=== PATIENT | male | born 1955 | race African-American/Black ===

== ENCOUNTER 2016-09-09 09:23 | Emergency (ER) | payer MEDICAID ==
[~2016-09-09] VITALS: Ht 190.5 cm; Wt 99.0 kg
[2016-09-09] MEDS ORDERED: LIDOCAINE HCL 1% 20ML VIAL (Pyxis) INJ MC ONE (11:30)
[2016-09-09] MEDS ORDERED: BACITRACIN ZINC OINT UDPKT TOP ONE (11:30)
[2016-09-09 15:05] VITALS: BP 147/85
== END 2016-09-09 15:08 | disposition home or self-care (01) ==
LOC: ER 09:37
DX: S81.812A Laceration without foreign body, left lower leg, initial encounter (principal); W22.8XXA Striking against or struck by other objects, initial encounter; Y93.H2 Activity, gardening and landscaping; Y92.89 Other specified places as the place of occurrence of the external cause; R03.0 Elevated blood-pressure reading, without diagnosis of hypertension; F17.210 Nicotine dependence, cigarettes, uncomplicated
CPT/HCPCS: 12002; 73590; 99284; J3490; Z7610

== ENCOUNTER 2016-09-11 06:42 | Emergency (ER) | payer MEDICAID ==
[~2016-09-11] VITALS: Ht 193 cm; Wt 103.0 kg
[2016-09-11 07:56] VITALS: BP 122/80
== END 2016-09-11 07:57 | disposition home or self-care (01) ==
LOC: ER 07:44
DX: S81.812D Laceration without foreign body, left lower leg, subsequent encounter (principal); M19.90 Unspecified osteoarthritis, unspecified site; X58.XXXD Exposure to other specified factors, subsequent encounter; Y92.096 Garden or yard of other non-institutional residence as the place of occurrence of the external cause; Y99.0 Civilian activity done for income or pay
CPT/HCPCS: 99283; Z7610

== ENCOUNTER 2016-09-14 02:51 | Emergency (ER) | payer MEDICAID ==
[~2016-09-14] VITALS: Ht 193 cm; Wt 102.0 kg
[2016-09-14] MEDS ORDERED: TETANUS, DIPHTHERIA, PERTUSSIS VAC/PF 0.5ML (>7YR OLD) IM ONE (03:30)
[2016-09-14] MEDS ORDERED: BACITRACIN ZINC OINT UDPKT TOP ONE (03:30)
[2016-09-14] MEDS ORDERED: IBUPROFEN 600MG TABLET PO ONE (03:30)
[2016-09-14 05:23] VITALS: BP 124/72
== END 2016-09-14 05:26 | disposition home or self-care (01) ==
LOC: ER 02:51
DX: Z48.00 Encounter for change or removal of nonsurgical wound dressing (principal)
CPT/HCPCS: 90471; 90715; 99283

== ENCOUNTER 2016-09-21 10:34 | Emergency (ER) | payer MEDICAID ==
[~2016-09-21] VITALS: Ht 193 cm; Wt 100.0 kg
[2016-09-21 11:58] VITALS: BP 118/59
== END 2016-09-21 12:22 | disposition home or self-care (01) ==
LOC: ER 11:57
DX: Z48.02 Encounter for removal of sutures (principal); J45.909 Unspecified asthma, uncomplicated; F17.210 Nicotine dependence, cigarettes, uncomplicated; M19.90 Unspecified osteoarthritis, unspecified site
CPT/HCPCS: 99281; Z7610

== ENCOUNTER 2020-08-09 15:37 | Emergency (ER) | payer MEDICAID, OTHER ==
[~2020-08-09] VITALS: Ht 190.5 cm; Wt 97.0 kg
[2020-08-09 17:13] LABS: CHLORIDE 108 mEq/L (98-107)
[2020-08-09 17:16] LABS: BASOPHILS % 0.7 % (0.0-2.0); EOSINOPHILS % 3.9 % (0.0-5.0); HEMATOCRIT. 38.3 % (42.0-52.0); HEMOGLOBIN. 13.3 g/dL (14.0-18.0); LYMPHOCYTES % 37.5 % (20.0-50.0); MEAN CORPUSCULAR HEMOGLOBIN 32.2 pg (28.0-32.0); MEAN PLATELET VOLUME 7.7 fl (7.4-10.4); MONOCYTES % 6.1 % (2.0-8.0); NEUTROPHILS % 51.8 % (40.0-76.0); PLATELET 215 x1000/uL (130-400); RED BLOOD CELL COUNT 4.12 mill/uL (4.7-6.1); RED CELL DISTRIBUTION WIDTH 12.8 % (11.6-14.6)
[2020-08-09 17:17] LABS: ETHANOL BLOOD < 10 mg/dL
[2020-08-09 22:08] LABS: CLARITY URINE CLEAR (CLEAR); COLOR URINE YELLOW (YELLOW); KETONES URINE TRACE (NEGATIVE); LEUKOCYTE ESTERASE URINE TRACE (NEGATIVE); NITRITE URINE NEGATIVE (NEGATIVE); OCCULT BLOOD URINE NEGATIVE (NEGATIVE); PH URINE 6.5 (4.5-8.0); PROTEIN URINE NEGATIVE (NEGATIVE); SPECIFIC GRAVITY URINE 1.025 (1.005-1.030)
[2020-08-09 22:21] LABS: *AMPHETAMINES SCREEN URINE NEGATIVE (NEGATIVE); *BARBITURATES SCREEN URINE NEGATIVE (NEGATIVE); *BENZODIAZEPINES SCREEN URINE NEGATIVE (NEGATIVE); *COCAINE SCREEN URINE NEGATIVE (NEGATIVE); METHADONE URINE SCREEN NEGATIVE (NEGATIVE); OPIATES URINE SCREEN NEGATIVE (NEGATIVE)
[2020-08-09 22:22] LABS: CANNABINOID URINE SCREEN NEGATIVE (NEGATIVE); PHENCYCLIDINE URINE SCREEN NEGATIVE (NEGATIVE)
[2020-08-09] MEDS ORDERED: CEPH250C2 MT (22:41)
[2020-08-09] MEDS ORDERED: CEPHALEXIN 250MG CAPSULE PO ONE (22:45)
[2020-08-09 23:25] VITALS: BP 165/81
== END 2020-08-09 23:30 | disposition home or self-care (01) ==
LOC: ER 15:37
DX: K40.90 Unilateral inguinal hernia, without obstruction or gangrene, not specified as recurrent (principal); N39.0 Urinary tract infection, site not specified; N50.811 Right testicular pain; E78.00 Pure hypercholesterolemia, unspecified; I25.10 Atherosclerotic heart disease of native coronary artery without angina pectoris; M19.90 Unspecified osteoarthritis, unspecified site; Z87.891 Personal history of nicotine dependence
CPT/HCPCS: 36415; 76870; 80053; 80305; 80320; 81003; 85025; 93976; 99284; G0480